=== PATIENT | female | born 1935 | race Caucasian/White ===

== ENCOUNTER 2017-01-09 09:14 | Inpatient (IN) | payer OTHER ==
[~2017-01-09] VITALS: Ht 157.5 cm; Wt 58.7 kg
[2017-01-09] MEDS ORDERED: LISI1TAB5 PO (09:48)
[2017-01-09] MEDS ORDERED: METF500T4 PO (09:48)
[2017-01-09] MEDS ORDERED: ESTR0.6246 PO (09:48)
[2017-01-09] MEDS ORDERED: [UNRECOGNIZED DRUG - OTHER] (09:48)
[2017-01-09] MEDS ORDERED: FURO20TA3 PO (09:48)
[2017-01-09] MEDS ORDERED: ATOR40TA78 PO (09:48)
[2017-01-09] MEDS ORDERED: POTA20TA6 PO (09:48)
[2017-01-09 10:11] LABS: PATH.CAST-FLAG NOT PRESENT; SPERM-FLAG NOT PRESENT; SRC-FLAG NOT PRESENT; XTAL-FLAG NOT PRESENT; YLC-FLAG NOT PRESENT
[2017-01-09 10:19] LABS: RAPID INFLUENZA A Negative (Negative); RAPID INFLUENZA B Negative (Negative)
[2017-01-09 10:27] LABS: HEMATOCRIT 39.6 % (34.6-47.8); HEMOGLOBIN 13.3 g/dL (11.7-16.4); WHITE BLOOD COUNT 17.5 x10^3/uL (3.4-10)
[2017-01-09 10:40] LABS: BLOOD UREA NITROGEN 12 mg/dL (7-18)
[2017-01-09 10:43] LABS: ASPARTATE AMINO TRANSFERASE 14 U/L (15-37)
[2017-01-09 10:59] LABS: DIFF TOTAL CELLS COUNTED 100 CELL DIFF
[2017-01-09] MEDS ORDERED: POTASSIUM CHLORIDE 20 MEQ TAB.ER.PRT PO ONE ×2 (11:00→18:00)
[2017-01-09] MEDS ORDERED: POTASSIUM CHLORIDE 40 MEQ in SODIUM CHLORIDE 0.9% 1,000 ML IV ONE (11:00)
[2017-01-09] MEDS ORDERED: CEFTRIAXONE PMX 1GM/50ML 50 ML IVPB ONE (11:00)
[2017-01-09] MEDS ORDERED: AZITHROMYCIN 500 MG in SODIUM CHLORIDE 0.9% 250 ML IVPB ONE (11:00)
[2017-01-09] MEDS ORDERED: SODIUM CHLORIDE FLUSH 10ML SYR IVF ONE (11:00)
[2017-01-09 11:01] LABS: VERIFY COUNTS? YES
[2017-01-09] MEDS ORDERED: CEFTRIAXONE PMX 1GM/50ML 50 ML ONE (11:02)
[2017-01-09] MEDS ORDERED: POTASSIUM CHLORIDE 20 MEQ TAB.ER.PRT ONE (11:03)
[2017-01-09] MEDS ORDERED: SODIUM CHLORIDE FLUSH 10ML SYR IVF PRN (11:30)
[2017-01-09] MEDS ORDERED: NS + 40MEQ KCL 1,000 ML IV ONE (12:34)
[2017-01-09] MEDS ORDERED: hydrALAzine 20 MG/ML, 1ML IVPush PRN (13:00)
[2017-01-09] MEDS ORDERED: CEFTRIAXONE PMX 2GM/50ML 50 ML IV SCH (13:00)
[2017-01-09] MEDS ORDERED: ONDANSETRON 2MG/ML, 2ML IVPush PRN ×2 (13:00→18:30)
[2017-01-09] MEDS ORDERED: ACETAMINOPHEN 325 MG TABLET PO PRN (13:00)
[2017-01-09] MEDS ORDERED: ONDANSETRON ODT 4 MG PO PRN (13:00)
[2017-01-09 13:07] VITALS: BP 121/75
[2017-01-09] MEDS ORDERED: GLUCAGON 1 MG IM PRN ×2 (13:30→18:30)
[2017-01-09] MEDS ORDERED: DEXTROSE 4 GM TAB.CHEW PO PRN ×2 (13:30→18:30)
[2017-01-09] MEDS ORDERED: DEXTROSE 50%, 50ML SYRINGE IVPush PRN ×2 (13:30→18:30)
[2017-01-09 13:56] LABS: BLOOD UREA NITROGEN 11 mg/dL (7-18)
[2017-01-09] MEDS: INSULIN ASPART 100 UNITS/ML, PEN SQ-INSULIN SCH ×2 (16:00→22:16)
[2017-01-09] MEDS: HEPARIN 5,000 UNITS/ML, 1ML SQ SCH ×2 (16:49→21:42)
[2017-01-09] MEDS: FUROSEMIDE 20 MG TABLET PO SCH (16:49)
[2017-01-09] MEDS: SODIUM CHLORIDE 0.9% 1,000 ML IV SCH (16:49)
[2017-01-09 18:46] VITALS: BP 144/74
[2017-01-09] MEDS ORDERED: SODIUM CHLORIDE FLUSH 10ML SYR IVF SCH (21:00)
[2017-01-09] MEDS: ATORVASTATIN 40 MG TABLET PO SCH (21:40)
[2017-01-09] MEDS: LISINOPRIL 20 MG TABLET PO SCH (21:41)
[2017-01-09] MEDS: SODIUM CHLORIDE FLUSH 10ML SYR IVF SCH (21:41)
[2017-01-09] MEDS: HYDROCHLOROTHIAZIDE 12.5 MG CAPSULE PO SCH (21:41)
[2017-01-09] MEDS: POTASSIUM CHLORIDE 20 MEQ TAB.ER.PRT PO SCH (21:41)
[2017-01-10 00:38] VITALS: BP 127/68
[2017-01-10] MEDS ORDERED: VANCOMYCIN PER PHARMACY MC PRN (02:00)
[2017-01-10] MEDS ORDERED: PHARMACOKINETIC MONITORING MC PRN (02:30)
[2017-01-10] MEDS ORDERED: PHARMACOKINETIC CONSULTATION MC ONE (02:30)
[2017-01-10] MEDS: VANCOMYCIN 1,100 MG in SODIUM CHLORIDE 0.9% 250 ML IV SCH (04:08)
[2017-01-10] MEDS: SODIUM CHLORIDE 0.9% 1,000 ML IV SCH (04:08)
[2017-01-10 04:49] LABS: HEMATOCRIT 35.6 % (34.6-47.8); HEMOGLOBIN 12.1 g/dL (11.7-16.4)
[2017-01-10 05:02] LABS: BLOOD UREA NITROGEN 8 mg/dL (7-18)
[2017-01-10] MEDS ORDERED: POTASSIUM CHLORIDE 40 MEQ in SODIUM CHLORIDE 0.9% 500 ML IV ONE (05:30)
[2017-01-10] MEDS ORDERED: POTASSIUM CHLORIDE 20 MEQ TAB.ER.PRT PO ONE (05:30)
[2017-01-10 05:47] LABS: DIFF TOTAL CELLS COUNTED 100 CELL DIFF
[2017-01-10 05:49] LABS: VERIFY COUNTS? YES
[2017-01-10] MEDS ORDERED: MAGNESIUM SULFATE PMX 4GM/100M 100 ML IV ONE (06:00)
[2017-01-10] MEDS ORDERED: SODIUM PHOSPHATE 20 MMOL in SODIUM CHLORIDE 0.9% 500 ML IV ONE (06:00)
[2017-01-10] MEDS: HEPARIN 5,000 UNITS/ML, 1ML SQ SCH ×3 (06:31→20:50)
[2017-01-10 06:40] VITALS: BP 146/77
[2017-01-10] MEDS: INSULIN ASPART 100 UNITS/ML, PEN SQ-INSULIN SCH ×4 (07:00→20:37)
[2017-01-10] MEDS: SODIUM CHLORIDE FLUSH 10ML SYR IVF SCH ×2 (09:00→20:37)
[2017-01-10] MEDS ORDERED: AZITHROMYCIN 250 MG TABLET PO SCH (09:00)
[2017-01-10] MEDS: LISINOPRIL 20 MG TABLET PO SCH ×2 (09:35→20:50)
[2017-01-10] MEDS: POTASSIUM CHLORIDE 20 MEQ TAB.ER.PRT PO SCH ×2 (09:35→21:00)
[2017-01-10] MEDS: AZITHROMYCIN 250 MG TABLET PO SCH (09:35)
[2017-01-10] MEDS: FUROSEMIDE 20 MG TABLET PO SCH (09:35)
[2017-01-10] MEDS: HYDROCHLOROTHIAZIDE 12.5 MG CAPSULE PO SCH ×2 (09:35→20:49)
[2017-01-10] MEDS: CEFTRIAXONE PMX 2GM/50ML 50 ML IV SCH ×2 (12:35→20:50)
[2017-01-10] MEDS: NS + 20MEQ KCL 1,000 ML IV SCH ×2 (13:00→22:58)
[2017-01-10 14:57] VITALS: BP 139/88
[2017-01-10 20:17] VITALS: BP 147/83
[2017-01-10] MEDS: ATORVASTATIN 40 MG TABLET PO SCH (20:49)
[2017-01-11] MEDS ORDERED: POTASSIUM CHLORIDE 20 MEQ TAB.ER.PRT PO ONE (02:00)
[2017-01-11] MEDS: NS + 40MEQ KCL 1,000 ML IV SCH ×3 (02:32→22:00)
[2017-01-11 02:40] VITALS: BP 143/84
[2017-01-11] MEDS: HEPARIN 5,000 UNITS/ML, 1ML SQ SCH ×3 (04:45→21:13)
[2017-01-11] MEDS: VANCOMYCIN 1,100 MG in SODIUM CHLORIDE 0.9% 250 ML IV SCH (04:45)
[2017-01-11 05:25] LABS: HEMATOCRIT 36.1 % (34.6-47.8); HEMOGLOBIN 12.4 g/dL (11.7-16.4); WHITE BLOOD COUNT 10.6 x10^3/uL (3.4-10)
[2017-01-11 05:29] LABS: ASPARTATE AMINO TRANSFERASE 42 U/L (15-37); BLOOD UREA NITROGEN 10 mg/dL (7-18)
[2017-01-11 05:53] LABS: DIFF TOTAL CELLS COUNTED 100 CELL DIFF
[2017-01-11 05:56] LABS: VERIFY COUNTS? YES
[2017-01-11 05:57] LABS: POLYCHROMASIA 1+
[2017-01-11 06:40] VITALS: BP 157/84
[2017-01-11] MEDS: INSULIN ASPART 100 UNITS/ML, PEN SQ-INSULIN SCH ×4 (07:00→21:40)
[2017-01-11] MEDS: AZITHROMYCIN 250 MG TABLET PO SCH (08:42)
[2017-01-11] MEDS: POTASSIUM CHLORIDE 20 MEQ TAB.ER.PRT PO SCH ×2 (08:42→21:12)
[2017-01-11] MEDS: HYDROCHLOROTHIAZIDE 12.5 MG CAPSULE PO SCH ×2 (08:42→21:13)
[2017-01-11] MEDS: SODIUM CHLORIDE FLUSH 10ML SYR IVF SCH ×2 (08:42→21:00)
[2017-01-11] MEDS: LISINOPRIL 20 MG TABLET PO SCH ×2 (08:42→21:13)
[2017-01-11] MEDS: CEFTRIAXONE PMX 2GM/50ML 50 ML IV SCH ×2 (08:47→21:12)
[2017-01-11 12:36] LABS: BLOOD UREA NITROGEN 9 mg/dL (7-18)
[2017-01-11 13:07] VITALS: BP 128/82
[2017-01-11 13:09] LABS: IS PT STATUS REG ER OR PRE ER? NO
[2017-01-11 20:00] VITALS: BP 166/93
[2017-01-11] MEDS: DOXYCYCLINE 100MG TABLET PO SCH (21:12)
[2017-01-11] MEDS: ATORVASTATIN 40 MG TABLET PO SCH (21:13)
[2017-01-11 22:04] LABS: IS PT STATUS REG ER OR PRE ER? NO
[2017-01-12 01:27] VITALS: BP 167/92
[2017-01-12 02:16] LABS: IS PT STATUS REG ER OR PRE ER? NO
[2017-01-12] MEDS: HEPARIN 5,000 UNITS/ML, 1ML SQ SCH ×3 (04:28→21:34)
[2017-01-12] MEDS: VANCOMYCIN 1,100 MG in SODIUM CHLORIDE 0.9% 250 ML IV SCH (04:28)
[2017-01-12 05:07] LABS: HEMATOCRIT 34.8 % (34.6-47.8); HEMOGLOBIN 11.8 g/dL (11.7-16.4)
[2017-01-12 05:16] LABS: BLOOD UREA NITROGEN 9 mg/dL (7-18)
[2017-01-12 05:20] LABS: ASPARTATE AMINO TRANSFERASE 39 U/L (15-37)
[2017-01-12 05:41] LABS: DIFF TOTAL CELLS COUNTED 100 CELL DIFF
[2017-01-12 05:43] LABS: VERIFY COUNTS? YES
[2017-01-12] MEDS: HYDROCHLOROTHIAZIDE 12.5 MG CAPSULE PO SCH ×2 (07:52→21:32)
[2017-01-12] MEDS: LISINOPRIL 20 MG TABLET PO SCH ×2 (07:52→21:31)
[2017-01-12] MEDS: POTASSIUM CHLORIDE 20 MEQ TAB.ER.PRT PO SCH ×2 (07:52→21:32)
[2017-01-12] MEDS: DOXYCYCLINE 100MG TABLET PO SCH ×2 (07:52→21:31)
[2017-01-12] MEDS: SODIUM CHLORIDE FLUSH 10ML SYR IVF SCH ×2 (07:53→21:31)
[2017-01-12] MEDS: INSULIN ASPART 100 UNITS/ML, PEN SQ-INSULIN SCH ×4 (07:53→21:35)
[2017-01-12 07:58] VITALS: BP 149/86
[2017-01-12] MEDS: NS + 40MEQ KCL 1,000 ML IV SCH ×2 (08:45→21:30)
[2017-01-12] MEDS: CEFTRIAXONE PMX 2GM/50ML 50 ML IV SCH ×2 (10:02→21:30)
[2017-01-12 12:00] VITALS: BP 169/77
[2017-01-12] MEDS ORDERED: METOPROLOL TARTRATE 25 MG TABLET PO SCH (18:00)
[2017-01-12] MEDS ORDERED: METO-264 PO (18:17)
[2017-01-12 19:20] VITALS: BP 192/93
[2017-01-12 20:25] VITALS: BP 164/91
[2017-01-12] MEDS: ATORVASTATIN 40 MG TABLET PO SCH (21:32)
[2017-01-13 01:40] VITALS: BP 181/121
[2017-01-13] MEDS: hydrALAzine 20 MG/ML, 1ML IVPush PRN (01:49)
[2017-01-13 02:24] VITALS: BP 162/79
[2017-01-13] MEDS ORDERED: METOPROLOL 1 MG/ML, 5ML IVPush ONE (03:30)
[2017-01-13] MEDS: VANCOMYCIN 1,100 MG in SODIUM CHLORIDE 0.9% 250 ML IV SCH (04:46)
[2017-01-13] MEDS ORDERED: METOPROLOL TARTRATE 50 MG TABLET PO SCH (06:00)
[2017-01-13] MEDS: HEPARIN 5,000 UNITS/ML, 1ML SQ SCH ×3 (06:25→21:16)
[2017-01-13] MEDS: INSULIN ASPART 100 UNITS/ML, PEN SQ-INSULIN SCH ×4 (07:00→20:57)
[2017-01-13 08:09] VITALS: BP 156/85
[2017-01-13] MEDS: SODIUM CHLORIDE FLUSH 10ML SYR IVF SCH ×2 (09:54→21:02)
[2017-01-13] MEDS: METOPROLOL TARTRATE 25 MG TABLET PO SCH ×2 (09:55→16:59)
[2017-01-13] MEDS: POTASSIUM CHLORIDE 20 MEQ TAB.ER.PRT PO SCH ×2 (09:55→21:02)
[2017-01-13] MEDS: DOXYCYCLINE 100MG TABLET PO SCH ×2 (09:56→21:02)
[2017-01-13] MEDS: LISINOPRIL 20 MG TABLET PO SCH ×2 (09:56→21:02)
[2017-01-13] MEDS: HYDROCHLOROTHIAZIDE 12.5 MG CAPSULE PO SCH ×2 (09:56→21:02)
[2017-01-13] MEDS: CEFTRIAXONE PMX 2GM/50ML 50 ML IV SCH ×2 (10:51→21:01)
[2017-01-13 14:00] VITALS: BP_SYST 105; BP_SYST 162; BP_DIAS 66; BP_DIAS 82
[2017-01-13] MEDS: NS + 40MEQ KCL 1,000 ML IV SCH (14:26)
[2017-01-13] MEDS: ACETAMINOPHEN 325 MG TABLET PO PRN (16:59)
[2017-01-13 20:36] VITALS: BP 171/95
[2017-01-13] MEDS: ATORVASTATIN 40 MG TABLET PO SCH (21:00)
[2017-01-13] MEDS ORDERED: ATORVASTATIN 10 MG TABLET ONE (21:04)
[2017-01-13] MEDS ORDERED: LORazepam 0.5MG TABLET PO ONE (23:30)
[2017-01-14] MEDS: METOPROLOL TARTRATE 25 MG TABLET PO SCH ×2 (00:02→08:02)
[2017-01-14] MEDS: hydrALAzine 20 MG/ML, 1ML IVPush PRN ×2 (00:08→21:46)
[2017-01-14] MEDS: NS + 40MEQ KCL 1,000 ML IV SCH ×2 (00:30→14:19)
[2017-01-14] MEDS ORDERED: ADENOSINE 6 MG/2 ML ONE (01:39)
[2017-01-14] MEDS ORDERED: METOPROLOL 1 MG/ML, 5ML IVPush ONE (02:00)
[2017-01-14] MEDS ORDERED: ADENOSINE 6 MG/2 ML IVPush ONE ×2 (02:00)
[2017-01-14] MEDS ORDERED: METOPROLOL TARTRATE 25 MG TABLET PO ONE ×2 (02:00→10:00)
[2017-01-14] MEDS: ACETAMINOPHEN 325 MG TABLET PO PRN ×2 (02:45→15:49)
[2017-01-14 03:03] VITALS: BP 157/74
[2017-01-14] MEDS ORDERED: METOPROLOL 1 MG/ML, 5ML IVPush PRN (03:30)
[2017-01-14 03:55] LABS: BLOOD UREA NITROGEN 10 mg/dL (7-18)
[2017-01-14] MEDS ORDERED: LOPERAMIDE 2 MG CAPSULE PO ONE (07:00)
[2017-01-14] MEDS: LOPERAMIDE 2 MG CAPSULE PO SCH ×5 (07:00→22:44)
[2017-01-14] MEDS: INSULIN ASPART 100 UNITS/ML, PEN SQ-INSULIN SCH ×4 (07:00→21:00)
[2017-01-14 07:45] VITALS: BP 155/84
[2017-01-14] MEDS: LISINOPRIL 20 MG TABLET PO SCH ×2 (08:01→20:09)
[2017-01-14] MEDS: POTASSIUM CHLORIDE 20 MEQ TAB.ER.PRT PO SCH ×2 (08:01→20:08)
[2017-01-14] MEDS: DOXYCYCLINE 100MG TABLET PO SCH ×2 (08:02→20:09)
[2017-01-14] MEDS: HEPARIN 5,000 UNITS/ML, 1ML SQ SCH ×2 (08:02→17:25)
[2017-01-14] MEDS: HYDROCHLOROTHIAZIDE 12.5 MG CAPSULE PO SCH ×2 (08:02→20:09)
[2017-01-14] MEDS: LACTOBACILLUS 1GM/ PACKET PO SCH ×4 (08:02→20:07)
[2017-01-14] MEDS: SODIUM CHLORIDE FLUSH 10ML SYR IVF SCH ×2 (08:03→21:00)
[2017-01-14] MEDS: METOPROLOL TARTRATE 50 MG TABLET PO SCH ×2 (09:00→17:24)
[2017-01-14] MEDS: CEFDINIR 300 MG CAPSULE PO SCH ×2 (09:40→20:09)
[2017-01-14 14:19] VITALS: BP 167/84
[2017-01-14] MEDS ORDERED: ATORVASTATIN 10 MG TABLET ONE (20:00)
[2017-01-14] MEDS: ATORVASTATIN 40 MG TABLET PO SCH (20:08)
[2017-01-14 21:42] VITALS: BP 173/90
[2017-01-15] MEDS: METOPROLOL TARTRATE 50 MG TABLET PO SCH ×2 (00:08→09:02)
[2017-01-15] MEDS: NS + 40MEQ KCL 1,000 ML IV SCH (00:08)
[2017-01-15] MEDS ORDERED: DIPHENHYDRAMINE 25 MG CAPSULE ONE (00:24)
[2017-01-15] MEDS: HEPARIN 5,000 UNITS/ML, 1ML SQ SCH ×2 (00:27→09:03)
[2017-01-15] MEDS ORDERED: DIPHENHYDRAMINE 25 MG CAPSULE PO PRN (00:30)
[2017-01-15 00:53] VITALS: BP 164/85
[2017-01-15] MEDS: LOPERAMIDE 2 MG CAPSULE PO SCH ×2 (06:28→10:16)
[2017-01-15] MEDS: LACTOBACILLUS 1GM/ PACKET PO SCH ×2 (06:29→10:18)
[2017-01-15 07:19] VITALS: BP 157/91
[2017-01-15] MEDS ORDERED: CEFD300C37 PO (08:02)
[2017-01-15] MEDS ORDERED: DOXY100T PO (08:02)
[2017-01-15] MEDS ORDERED: ACID1GRA3 PO (08:02)
[2017-01-15 08:06] LABS: BLOOD UREA NITROGEN 8 mg/dL (7-18)
[2017-01-15] MEDS ORDERED: LOPE2TAB59 PO (08:09)
[2017-01-15] MEDS: SODIUM CHLORIDE FLUSH 10ML SYR IVF SCH (09:01)
[2017-01-15] MEDS: INSULIN ASPART 100 UNITS/ML, PEN SQ-INSULIN SCH (09:01)
[2017-01-15] MEDS: POTASSIUM CHLORIDE 20 MEQ TAB.ER.PRT PO SCH (09:02)
[2017-01-15] MEDS: LISINOPRIL 20 MG TABLET PO SCH (09:02)
[2017-01-15] MEDS: HYDROCHLOROTHIAZIDE 12.5 MG CAPSULE PO SCH (09:02)
[2017-01-15] MEDS: DOXYCYCLINE 100MG TABLET PO SCH (09:02)
[2017-01-15] MEDS: CEFDINIR 300 MG CAPSULE PO SCH (09:02)
[2017-01-15 10:14] VITALS: BP 130/69
== END 2017-01-15 11:40 | disposition home or self-care (01) | DRG 871 ==
LOC: ED 10:14 → EDIP 11:16 → 4EST 13:03 → 5SO 01-13 08:00 → DCLOUNGE 01-15 11:25
PROVIDERS: ADMIT Family Medicine; ATTEND Family Medicine
PROC: 02HV33Z Insertion of Infusion Device into Superior Vena Cava, Percutaneous Approach (ICD-10-PCS; principal; 2017-01-10)
PROC: B5181ZA Fluoroscopy of Superior Vena Cava using Low Osmolar Contrast, Guidance (ICD-10-PCS; 2017-01-10)
DX: A40.3 Sepsis due to Streptococcus pneumoniae (principal); J15.4 Pneumonia due to other streptococci; A04.72 Enterocolitis due to Clostridium difficile, not specified as recurrent; E87.1 Hypo-osmolality and hyponatremia; E11.9 Type 2 diabetes mellitus without complications; I47.1 Supraventricular tachycardia; E78.5 Hyperlipidemia, unspecified; E87.6 Hypokalemia; I10 Essential (primary) hypertension; T36.95XA Adverse effect of unspecified systemic antibiotic, initial encounter; R09.02 Hypoxemia; Z87.891 Personal history of nicotine dependence; Y92.89 Other specified places as the place of occurrence of the external cause
CPT/HCPCS: 36415; 36569; 71020; 76937; 77001; 80048; 80053; 80202; 81001; 82962; 83605; 83735; 84100; 84132; 84145; 84443; 84484; 85025; 87040; 87070; 87181; 87205; 87324; 87400; 93005; 93306; 94667; 96365; J0153; J0456; J0696; J1644; J1815; J3370; J3480; C1751; J0360; J3475; J7030; J7040; J7050; Q0163

== ENCOUNTER 2017-07-06 16:18 | Emergency (ER) | payer OTHER ==
[~2017-07-06] VITALS: Ht 160 cm; Wt 60.5 kg
[~2017-07-06 16:18] MED LIST: ACID1GRA3 PO; ATOR40TA78 PO; CEFD300C37 PO; DOXY100T PO; ESTR0.6246 PO; FURO20TA3 PO; LISI1TAB5 PO; LOPE2TAB59 PO; METF500T4 PO; METO-264 PO; POTA20TA6 PO; [UNRECOGNIZED DRUG - OTHER]
[2017-07-06] MEDS ORDERED: SODIUM CHLORIDE FLUSH 10ML SYR IVF ONE (16:30)
[2017-07-06 17:05] LABS: BASOPHILS # (AUTO) 0.03 x10^3/uL (0-0.1); BASOPHILS % (AUTO) 0 % (0-1); EOSINOPHILS # (AUTO) 0.31 x10^3/uL (0-0.4); EOSINOPHILS % (AUTO) 5 % (1-7); LYMPHOCYTES # (AUTO) 1.54 x10^3/uL (1-3.4); LYMPHOCYTES % (AUTO) 24 % (22-44); MD NO; MEAN CORPUSCULAR HEMOGLOBIN 31.2 pg (27.0-34.8); MEAN CORPUSCULAR HGB CONC 33.7 g/dL (32.4-35.8); MEAN CORPUSCULAR VOLUME 92.5 fL (80-100); MEAN PLATELET VOLUME 7.3 fL (7.4-10.4); MONOCYTES # (AUTO) 0.53 x10^3/uL (0.2-0.8); MONOCYTES % (AUTO) 8 % (2-9); NEUTROPHILS # (AUTO) 4.03 x10^3/uL (1.8-6.8); NEUTROPHILS % (AUTO) 63 % (42-75); PLATELET COUNT 326 x10^3/uL (130-400); RED BLOOD COUNT 4.38 x10^6/uL (3.82-5.3); RED CELL DISTRIBUTION WIDTH 13.1 % (9.6-15.2)
[2017-07-06] MEDS ORDERED: ATOR10TA PO (17:05)
[2017-07-06] MEDS ORDERED: FURO20TA3 PO (17:11)
[2017-07-06 17:16] LABS: ALANINE AMINOTRANSFERASE 19 U/L (12-78); ALBUMIN 3.7 g/dL (3.4-5.0); ANION GAP 11 mmol/L (5-15); CALCIUM 8.7 mg/dL (8.5-10.1); CHLORIDE 95 mmol/L (98-107); CREATININE 0.91 mg/dL (0.55-1.02)
[2017-07-06 17:20] LABS: ALKALINE PHOSPHATASE 51 U/L (45-117); BILIRUBIN,TOTAL 0.4 mg/dL (0.2-1.0); TROPONIN I < 0.015 ng/mL (0.000-0.045)
[2017-07-06 17:47] VITALS: BP 153/66
[2017-07-06 18:00] LABS: MICROSCOPIC NOT IND
[2017-07-06 18:04] LABS: CULTURE INDICATED? NO
[2017-07-06] MEDS ORDERED: POTASSIUM CHLORIDE 20 MEQ TAB.ER.PRT ONE (18:13)
[2017-07-06] MEDS ORDERED: POTASSIUM CHLORIDE 20 MEQ TAB.ER.PRT PO ONE (18:30)
== END 2017-07-06 18:38 | disposition home or self-care (01) ==
LOC: ED 18:00
DX: H81.399 Other peripheral vertigo, unspecified ear (principal); H81.10 Benign paroxysmal vertigo, unspecified ear; E87.6 Hypokalemia; I10 Essential (primary) hypertension; E11.9 Type 2 diabetes mellitus without complications; E87.1 Hypo-osmolality and hyponatremia
CPT/HCPCS: 36415; 70450; 80053; 81003; 84484; 85025; 93005; 99285

== ENCOUNTER 2018-07-18 14:32 | Emergency (ER) | payer OTHER ==
[~2018-07-18] VITALS: Ht 160 cm; Wt 64.1 kg
[~2018-07-18 14:32] MED LIST changes: +ATOR10TA PO; +METF500T17 PO; -METF500T4 PO
[2018-07-18 15:09] LABS: BASOPHILS # (AUTO) 0.05 x10^3/uL (0-0.1); BASOPHILS % (AUTO) 1 % (0-1); EOSINOPHILS # (AUTO) 0.25 x10^3/uL (0-0.4); EOSINOPHILS % (AUTO) 4 % (1-7); LYMPHOCYTES % (AUTO) 20 % (22-44); MD NO; MEAN CORPUSCULAR HEMOGLOBIN 31.4 pg (27.0-34.8); MEAN CORPUSCULAR HGB CONC 32.8 g/dL (32.4-35.8); MEAN CORPUSCULAR VOLUME 95.6 fL (80-100); MEAN PLATELET VOLUME 7.3 fL (7.4-10.4); MONOCYTES # (AUTO) 0.49 x10^3/uL (0.2-0.8); MONOCYTES % (AUTO) 8 % (2-9); NEUTROPHILS # (AUTO) 3.94 x10^3/uL (1.8-6.8); NEUTROPHILS % (AUTO) 67 % (42-75); PLATELET COUNT 351 x10^3/uL (130-400); RED BLOOD COUNT 4.38 x10^6/uL (3.82-5.3); RED CELL DISTRIBUTION WIDTH 13.1 % (9.6-15.2)
[2018-07-18 15:19] LABS: ALBUMIN 3.7 g/dL (3.4-5.0); ANION GAP 7 mmol/L (5-15); CALCIUM 8.9 mg/dL (8.5-10.1); CHLORIDE 98 mmol/L (98-107)
--- NOTE | 2018-07-18 15:24 | NUR ---
FROM LOBBY TO ROOM AT THIS TIME
[2018-07-18 15:25] LABS: ALANINE AMINOTRANSFERASE 23 U/L (12-78); ALKALINE PHOSPHATASE 42 U/L (45-117); BILIRUBIN,TOTAL 0.9 mg/dL (0.2-1.0); CREATININE 0.82 mg/dL (0.55-1.02); TOTAL PROTEIN 7.8 g/dL (6.4-8.2); TROPONIN I < 0.015 ng/mL (0.000-0.045)
--- NOTE | 2018-07-18 16:12 | NUR ---
PT ASSESSED. LIUSITO AT BEDSIDE. PT RESTING COMFORTABLY. UPDATED ON POC.
[2018-07-18] MEDS ORDERED: NIFE60TA13 PO (16:34)
[2018-07-18] MEDS ORDERED: POTA20PA25 PO (16:34)
--- NOTE | 2018-07-18 16:34 | NUR ---
MD AT BEDSIDE. UPDATED PT ON POC. PT TO DISCHARGE.
[2018-07-18 17:36] VITALS: BP 163/70
== END 2018-07-18 17:38 | disposition home or self-care (01) ==
LOC: ED 16:37
DX: S09.8XXA Other specified injuries of head, initial encounter (principal); I10 Essential (primary) hypertension; E11.9 Type 2 diabetes mellitus without complications; W01.0XXA Fall on same level from slipping, tripping and stumbling without subsequent striking against object, initial encounter; Y93.89 Activity, other specified; Y92.410 Unspecified street and highway as the place of occurrence of the external cause; Y99.8 Other external cause status
CPT/HCPCS: 36415; 70450; 71045; 80053; 84484; 85025; 93005; 99284